=== PATIENT | male | born 1955 | race Caucasian/White ===

== ENCOUNTER 2020-09-22 22:44 | Emergency (ER) | payer OTHER ==
[~2020-09-22] VITALS: Ht 175.3 cm; Wt 85.0 kg
--- NOTE | 2020-09-22 22:56 | NUR ---
Pt on left lateral side, states hes feeling a bit less nauseated now since meds. IVF wide open from field to complete 1L. Call wood in reach, on monitor, emesis basin, airway patent and gag. Will continue to monitor. AIDET provided. Lab to draw.
--- NOTE | 2020-09-22 22:56 | NUR ---
BIB EMS, PT WAS HAVING DINNER AND DRINKS WITH HELADIO. REPORTS THREE COCKTAILS AND PASSING OUT ON THE TABLE WHILE EATING. PER EMS REPORT PT HAS BEEN NAUSEATED AND VOMITING, GIVEN ZOFRAN PHENERGAN AND FLUIDS DRAMA CRITIC.
--- NOTE | 2020-09-22 23:17 | NUR ---
Remains left lateral, wakes up with loud verbal/touch. Reports less nauseated feeling.
[2020-09-22 23:28] LABS: ALBUMIN 3.2 g/dL (3.4-5.0); ANION GAP 13 mmol/L (5-15); CALCIUM 7.9 mg/dL (8.5-10.1); CHLORIDE 111 mmol/L (98-107)
[2020-09-22 23:29] LABS: CREATININE 1.29 mg/dL (0.7-1.3)
[2020-09-22 23:32] LABS: BASOPHILS % (AUTO) 1 % (0-1); EOSINOPHILS % (AUTO) 4 % (1-7); LYMPHOCYTES % (AUTO) 41 % (22-44); MEAN CORPUSCULAR HEMOGLOBIN 29.7 pg (27.5-34.5); MEAN CORPUSCULAR HGB CONC 34.3 g/dL (33.2-36.2); MEAN PLATELET VOLUME 7.4 fL (7.4-10.4); MONOCYTES % (AUTO) 8 % (2-9); NEUTROPHILS % (AUTO) 47 % (42-75); PLATELET COUNT 185 x10^3/uL (130-400); RED BLOOD COUNT 4.13 x10^6/uL (4.38-5.82); RED CELL DISTRIBUTION WIDTH 13.1 % (9.4-14.8)
--- NOTE | 2020-09-22 23:33 | NUR ---
Noted on tele slight change in ST elevation, no cp, no sob only nauseated. Requested STAT EKG.
[2020-09-22 23:49] LABS: MD NO
--- NOTE | 2020-09-23 00:19 | NUR ---
Pt states nausea has improved. Pt resting, awakes to verbal. Denies CP or SOB. Will monitor.
[2020-09-23 00:20] VITALS: BP 108/61
[2020-09-23] MEDS ORDERED: SODIUM CHLORIDE 0.9% 1,000ML IVBOLUS ONE (01:00)
--- NOTE | 2020-09-23 01:00 | NUR ---
2nd Liter NS wide open. VSS. Pt to be discharged post hydration. at bedside. Pt feeling better.
--- NOTE | 2020-09-23 01:39 | NUR ---
Pt states feeling better, denies nausea. Denies SOB or CP. Pt IV dc'd intact. Pt stable on feet. On RA. Pt home . RX and DC instructions reviewed with patient and with understanding stated. Pt out of ED in WC. driving patient home.
== END 2020-09-23 01:43 | disposition home or self-care (01) ==
LOC: ED 09-23 01:20
DX: R11.2 Nausea with vomiting, unspecified (principal); F10.120 Alcohol abuse with intoxication, uncomplicated; R94.31 Abnormal electrocardiogram [ECG] [EKG]; Y90.9 Presence of alcohol in blood, level not specified
CPT/HCPCS: 36415; 80048; 80320; 82040; 85025; 93005; 96360; 99283; J7030; G0480